=== PATIENT | female | born 1970 | race Caucasian/White ===

== ENCOUNTER 2024-02-02 06:05 | Emergency (ER) | payer SELFPAY ==
[~2024-02-02] VITALS: Ht 157.5 cm; Wt 70.0 kg
[2024-02-02 06:15] VITALS: O2SAT 96
[2024-02-02] MEDS ORDERED: TOPUD PO (06:22)
[2024-02-02] MEDS: ACETAMINOPHEN 325MG TABLET PO ONE (07:39)
[2024-02-02 07:55] VITALS: BP 138/77; PULSE 81; RESP 16; TEMP 36.89184; O2SAT 96
== END 2024-02-02 08:00 | disposition home or self-care (01) ==
LOC: ER 06:05
DX: G89.29 Other chronic pain (principal); M25.562 Pain in left knee
CPT/HCPCS: 99283